=== PATIENT | male | born 1960 | race Caucasian/White ===

== ENCOUNTER → 2020-03-06 09:42 | Outpatient (CLI) | payer BC, SELFPAY ==
--- NOTE | 2020-03-06 09:45 | DI.RAD.S_ITS ---
PROCEDURE: XR HAND RT MIN 3V INDICATIONS: BILATERAL HAND JOINT PAIN TECHNIQUE: 3 views of the hand(s) acquired. COMPARISON: None. FINDINGS: Bones: No fractures or dislocations. Carpal bones are normally aligned. No suspicious bony lesions. Mild 1st CMC joint osteoarthritis. Soft tissues: No suspicious soft tissue calcifications. IMPRESSION: Osteoarthritis. Dictated by: Charlotte Daniels MD, PhD on 03/06/2020 at 16:25 Approved by: Charlotte Daniels MD, PhD on 03/06/2020 at 16:26
--- NOTE | 2020-03-06 09:45 | DI.RAD.S_ITS ---
PROCEDURE: XR HAND LT MIN 3V INDICATIONS: BILATERAL HAND JOINT PAIN TECHNIQUE: 3 views of the hand(s) acquired. COMPARISON: [facility], CR, XR HAND RT MIN 3V, 03/06/2020, 9:37. FINDINGS: Bones: No fractures or dislocations. Carpal bones are normally aligned. No suspicious bony lesions. 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 Soft tissues: No suspicious soft tissue calcifications. IMPRESSION: Osteoarthritis. Dictated by: Charlotte Daniels MD, PhD on 03/06/2020 at 16:25 Approved by: Charlotte Daniels MD, PhD on 03/06/2020 at 16:25
== END ==
PROVIDERS: PCP Internal Medicine; Referring Provider Internal Medicine; Visit Provider Internal Medicine
DX: M79.641 Pain in right hand (principal); M79.642 Pain in left hand; M19.042 Primary osteoarthritis, left hand; M19.041 Primary osteoarthritis, right hand
CPT/HCPCS: 73130

== ENCOUNTER → 2022-03-09 07:53 | Outpatient (CLI) | payer BC, SELFPAY | PROVIDERS: PCP Internal Medicine; Referring Provider Orthopaedic Surgery Orthopaedic Surgery of the Spine; Visit Provider Orthopaedic Surgery Orthopaedic Surgery of the Spine | DX: Z01.818 Encounter for other preprocedural examination (principal); Z01.812 Encounter for preprocedural laboratory examination; R73.9 Hyperglycemia, unspecified | CPT/HCPCS: 93005 ==

== ENCOUNTER → 2022-03-20 07:15 | Outpatient (CLI) | payer BC, SELFPAY ==
[2022-03-20 08:11] LABS: COVID19 -Nasal RAPID Negative (Negative)
== END ==
PROVIDERS: PCP Internal Medicine; Referring Provider Orthopaedic Surgery Orthopaedic Surgery of the Spine; Visit Provider Orthopaedic Surgery Orthopaedic Surgery of the Spine
DX: Z20.822 Contact with and (suspected) exposure to COVID-19 (principal)
CPT/HCPCS: 87635; C9803

== ENCOUNTER 2022-03-27 11:02 | Day surgery (SDC) | payer BC, SELFPAY ==
[2022-03-16 08:32] VITALS: BMI 33.9
[2022-03-27] VITALS (13 sets, daily range): BP systolic 94–144; BP diastolic 53–78; PULSE 60–92; RESP 12–18; TEMP 36–36.6; O2SAT 94–99; BMI 33.9
--- NOTE | 2022-03-27 | DI.RAD.S_ITS ---
PROCEDURE: XR LUMBAR SPINE 2-3V INDICATIONS: TLIF L5-S1 TECHNIQUE: Two views of the lumbar spine were acquired. COMPARISON: None. FINDINGS: Intraoperative spot images were obtained of the lumbosacral spine for fusion construct placement. IMPRESSION: Intraoperative spot images were obtained of the lumbosacral spine for fusion construct placement. Please see operative note for full details. Dictated by: Ray Thomas M.D. on 03/27/2022 at 15:22 Approved by: Ray Thomas M.D. on 03/27/2022 at 15:23
[2022-03-27] MEDS: GABAPENTIN 300 MG CAPSULE PO (11:39)
[2022-03-27] MEDS: ACETAMINOPHEN 325 MG TABLET 975 MG PO (11:39)
[2022-03-27] MEDS: LACTATED RINGERS 1,000 ML 42 ML IV ×2 (11:48→13:38)
[2022-03-27 12:03] LABS: COVID19 -Nasal RAPID Negative (Negative)
--- NOTE | 2022-03-27 12:06 | PM.PREOP ---
Pre-operative Note COVID-19 COVID-19 status: Negative Result date/Date tested (Pos, Neg/Pending): 03/26/22 Criteria for continued procedure: Expected advancement of disease process, Possibility delay results in more complex future surgery or treatment, Increased loss of function, Continuing or worsening of significant or severe pain, Deterioration of the patient's condition or overall health and Delay expected to result in less-positive ultimate med/surg outcome Interval Note History & Physical reviewed/Exam performed by Physician: Yes Changes to H&P: No
[2022-03-27] MEDS: CEFAZOLIN 2 GM/100 ML PREMIX 100 ML IV ×2 (13:10→20:17)
--- NOTE | 2022-03-27 13:30 | SUR.OPER ---
Prone on spine table, head in foam head support, padded chest and pelvic supports, gel pad at knees, lower legs supported by pillows; nipples, genitalia and toes free of pressure, arms secured on foam padded arm boards at <90 degrees abduction. Tape over blanket at thigh secured to table. Gel placed between heels.
[2022-03-27] MEDS: BUPIVACAINE 0.25% (PF) 30 ML, EPINEPHrine 0.3 MG INJ (15:05)
[2022-03-27] MEDS: BUPIVACAINE LIPOSOME 266 MG/20 ML VIAL INJ (15:05)
--- NOTE | 2022-03-27 15:08 | PM.OP.1 ---
Operative Date/Time/Diagnoses Date of procedure: 03/27/22 Time of procedure: 13:00 Pre-op diagnosis: 1. L5-S1 spondylolisthesis 2. L5-S1 spinal stenosis Post-op diagnosis: same Procedure & Clinicians Procedure: 1. L5-S1 Postero-lateral and posterior interbody fusion 2. L5-S1 interbody cage placement. 3. L5-S1 decompressive laminectomy with bilateral facetecomies 4. L5-S1 Posterior non-segmental instrumentation 5. [place] of bone marrow from iliac crest 6. Utilization of microsurgical technique and operating microscope Same procedure as scheduled: Yes Indications: Patient has been having chronic back pain and worsening lumbar radiculopathy. Patient failed multiple conservative management with worsening pain weakness and numbness in his lower extremity. Patient has been having difficulty performing activity of daily living. After discussing risks benefits of treatment options, patient elected proceed with surgery. Surgeon: Ameena Sadners Electric Track Switch Maintainer: Patty Calderon Click Yes if Unassisted: No Anesthesia Type: General Operative Notes Closure Type: primary Specimen(s): none sent Prosthetic devices, grafts, tissues, transplants, or devices: Globus Revolve screws, Rise cage Estimated Blood Loss (mL): 50 Blood products transfused: none Procedure in detail: Patient was seen in the preoperative area. Risks and benefits of the surgery was discussed with the patient. Informed consent was obtained from the patient and placed in the chart. Surgical site was marked. Patient was taken to the operative room. General anesthesia was administered. Prophylactic antibiotic was given to the patient less than 30 min before the incision was made. Patient was placed into a prone position on the Vernon table. Patient's back was then prepped and draped in the sterile fashion. Time-out was performed at this time. Using AP and lateral C-arm imaging the interval between L5-S1 was identified and marked on patient's back. A 2 inch incision 2 in from midline was made on the right side first. The fascia was incised in line with skin incision. Globus MARS retractors was placed inside the incision and docked onto the L5 lamina. Using microsurgical technique and operating microscope, a L5 laminectomy and L5-S1 facetectomy was performed using a Kerrison rongeur. Patient was found have severe neural foraminal stenosis and required a total facetectomy for decompression which rendered L5-S1 grossly unstable and required a fusion procedure at the same time. The disc space at L5-S1 was identified. And a total diskectomy was performed at L5-S1 level. The endplates were decorticated using a rasp and shaver. The total diskectomy and decortication was performed at L5-S1 level in order to to accomplish a L5-S1 fusion. The local bone from the laminectomy and facetectomy was saved for local bone grafting. After the total diskectomy and decortication was completed, Trifecta bone graft material was combined with local bone that was harvested earlier. At this time, a separate skin is incision was made over the iliac crest. A Jamshidi needle was inserted into the iliac crest through a separate skin incision. 5 cc of bone marrow aspiration was obtained through the separate skin incision using a Jamshidi needle from the iliac crest. The bone marrow aspiration was combined with local bone and the Trifecta bone grafting material. The bone grafting material was placed into the L5-S1 interbody space along with a expandable cage. The cage was expanded to its maximum height using the torque limiting screwdriver. At this time a mirror image incision was made on the left side. The fascia was incised in line with the skin incision. Globus MARS retractor was inserted and docked onto the L5-S1 posterolateral gutter. Using the power drill, posterior-lateral decortication was performed at L5-S1 level until bleeding cortical bone was identified. The remaining bone grafting material was placed into the L5-S1 posterior lateral gutter he order to accomplish posterolateral fusion at the L5-S1 level. Using the double C-arm technique, pedicle screws were placed into the L5-S1 pedicles bilaterally. This was done by placing the Jamshidi needle into the pedicles, then placing the guidewires over the Jamshidi needle, and finally placing the cannulated screws over the guidewires bilaterally. After the pedicle screws were placed, 2 titanium rods was locked into the heads of the pedicle screws using locking caps and torque limiting screwdriver. Spray Booth Operator users were used to reduce the patient's spondylolisthesis. Partial reduction was accomplished. All hardware placed was stable and had good purchase. After all the hardware was placed, and confirmed with AP and lateral C-arm imaging, the wound was then irrigated with sterile normal saline and packed with Ray-Traci gauze for 3 min to accomplish hemostasis. After the gauze was removed the deep fascia was closed with #1 Vicryl suture. The subcutaneous layer was closed with 2-0 Vicryl. The skin was closed with skin sruthi. Patient tolerated the procedure well. There were no complications. Complications: none Post-operative Condition: stable Disposition: PACU Plan for aftercare: Admit to inpatient hospital
--- NOTE | 2022-03-27 15:33 | PM.HP.1 ---
History of Present Illness History of Present Illness Date Patient Seen: 03/27/22 Time Patient Seen: 12:30 Date of Onset of Symptoms: 03/24/16 Chief complaint: TLIF Narrative: Mr. Peña is a 62 yo M with chronic back pain and worsening leg pain here for scheduled surgery. He has failed multiple conservative care over the last couple of years with difficulty performing activity of daily living. Patient History Medical History GERD (gastroesophageal reflux disease) Gout HLD (hyperlipidemia) HTN (hypertension) Moderate hearing loss Nerve damage Numbness and tingling STEPHANIE on CPAP Pain Sciatica Tinnitus Surgical History Hx of abdominal surgery (~2018) Hx of eye surgery Family & Social History Social History: household members spouse Prior Living Arrangements House Safety & Behavioral: Feels Safe in Current Yes Environment Been Physically Hurt or No Threatened By a Person Suicidal Ideation Description None Suicide Plan Description No Plan Tobacco & Substance use: Tobacco type cigarettes Smoking Status Former smoker alcohol intake current alcohol intake frequency a few times a week Substance Use Type does not use Meds Home Medications and Allergies Home Medications Medication Instructions Recorded Confirmed Type acyclovir 800 mg tablet 800 mg PO DAILY PRN Breakout 03/16/22 03/16/22 History allopurinol 300 mg tablet 300 mg PO DAILY 03/16/22 03/27/22 History amlodipine 5 mg tablet 5 mg PO BEDTIME 03/16/22 03/27/22 History atorvastatin 40 mg tablet 40 mg PO QPM 03/16/22 03/27/22 History colchicine 0.6 mg tablet 0.6 mg PO BID PRN Gout flare 03/16/22 03/16/22 History lisinopril 20 1 tab PO BID 03/16/22 03/27/22 History mg-hydrochlorothiazide 25 mg tablet methocarbamol 500 mg tablet 500 mg PO QID PRN Pain 03/16/22 03/27/22 History oxycodone-acetaminophen 5 mg-325 1 tab PO BID 03/16/22 03/27/22 History mg tablet pantoprazole 40 mg tablet,delayed 40 mg PO BEDTIME 03/16/22 03/16/22 History release tamsulosin 0.4 mg capsule 0.4 mg PO BEDTIME 03/16/22 03/27/22 History Allergies Allergy/AdvReac Type Severity Reaction Status Date / Time NSAIDS (Non-Steroidal AdvReac They give Verified 03/27/22 11:25 Anti-Inflamma me an ulcer Review of Systems Review of Systems ROS: Yes All systems reviewed with the patient and are negative except as otherwise documented Exam Vital Signs (past 8 hours): - 03/27/22 11:49 Temperature 96.8 F L Pulse Rate 68 Respiratory Rate 16 Blood Pressure 128/78 Pulse Oximetry 98 Oxygen Delivery Method Room Air Oxygen Delivery Method Room Air Const General: cooperative and healthy appearing Orientation: alert, awake and oriented x3 Back/Spine/Pelvis Other: Pain located at lumbosacral junction. Increased pain with extension and twisting. Neuro Other: + straight leg raise to RLE, sensibility decreased to bilateral L5 dermatome, motor strength 4/5 in bilateral EHL. Objective Labs Labs: Laboratory Results - last 24 hr 03/27/22 11:43 SARS-CoV-2 (PCR) Negative Assessment & Plan Assessment & Plan narrative: 62 yo M with chronic back pain due to grade III spondylolisthesis at L5-S1 level. He has severe back pain and leg pain correlating with his MRI finding of spondylolisthesis and foramen stenosis/central stenosis. He may benefit from decompression and fusion at L5-S1 level to address his spinal stenosis and spondylolisthesis. Risks for surgery include but not limited to bleeding, infection, persisting pain, nerve/dura/bladder/bowel/blood vessel injury, need for additional procedure, even . Patient understands and would like to proceed with surgery. I scheduled him for L5-S1 TLIF. Time Spent With Patient Critical Care time: I spent a total of [] minutes of critical care time on this patient's care today; this time is exclusive of procedural time. Quality VTE Deep Vein Thrombosis/Pulmonary Embolism Present on Admission: No
[2022-03-27] MEDS: hydrOXYzine 50 MG/ML INJ 25 MG IM (15:39)
[2022-03-27] MEDS: SODIUM CHLORIDE 0.9% 1,000 ML 100 ML IV (17:00)
[2022-03-27] MEDS: HYDROMORPHONE 0.5 MG INJ IV (17:17)
[2022-03-27] MEDS: hydrOXYzine pamoate 25 MG CAPSULE PO (17:18)
[2022-03-27] MEDS: ATORVASTATIN 20 MG TABLET 40 MG PO (17:18)
[2022-03-27] MEDS: OXYCODONE IR 5 MG TABLET 10 MG PO ×2 (18:32→21:51)
[2022-03-27] MEDS: ACETAMINOPHEN 325 MG TABLET 650 MG PO (19:23)
[2022-03-27] MEDS: TAMSULOSIN 0.4 MG CAPSULE PO (20:17)
[2022-03-27] MEDS: OXYCODONE/ACETAMINOPHEN 5/325 TABLET 1 TAB PO (20:17)
[2022-03-27] MEDS: DOCUSATE 100 MG CAPSULE PO (20:17)
[2022-03-27] MEDS: AMLODIPINE 5 MG TABLET PO (20:18)
[2022-03-27] MEDS: hydroCHLOROthiazide 25 MG TABLET PO (20:18)
[2022-03-27] MEDS: lisinopriL 20 MG TABLET PO (20:18)
[2022-03-27] MEDS: PANTOPRAZOLE DR 40 MG TABLET PO (20:18)
[2022-03-27] MEDS: SENNOSIDES 8.6 MG TABLET 17.2 MG PO (20:18)
[2022-03-28 00:07] VITALS: BP 124/70; PULSE 70; RESP 18; TEMP 36.7; O2SAT 99
[2022-03-28] MEDS: OXYCODONE IR 5 MG TABLET 10 MG PO ×2 (01:24→09:55)
--- NOTE | 2022-03-28 03:31 | PC.NURSE ---
Pt is AxOx4, needs 1 person assistance and cooperative. VSS except pain on his back. Pt request PRN Oxy around the clock. Pt goes to the bathroom and urinating well. pt uses his cpap machine at night. Dressing on his back has very light drainage. No other changes. Continue monitor.
[2022-03-28 03:50] VITALS: BP 142/63; PULSE 67; RESP 18; TEMP 36.6; O2SAT 95
[2022-03-28] MEDS: CEFAZOLIN 2 GM/100 ML PREMIX 100 ML IV (05:28)
[2022-03-28 07:32] VITALS: BP 135/71; PULSE 80; RESP 16; TEMP 37.4; O2SAT 93
[2022-03-28] MEDS: OXYCODONE/ACETAMINOPHEN 5/325 TABLET 1 TAB PO (07:32)
[2022-03-28] MEDS: hydroCHLOROthiazide 25 MG TABLET PO (07:32)
[2022-03-28 07:33] VITALS: BP 142/63; PULSE 67
[2022-03-28] MEDS: DOCUSATE 100 MG CAPSULE PO (07:33)
[2022-03-28] MEDS: hydrOXYzine pamoate 25 MG CAPSULE PO (07:33)
[2022-03-28] MEDS: lisinopriL 20 MG TABLET PO (07:33)
[2022-03-28] MEDS: COLCHICINE 0.6 MG TABLET PO (07:38)
--- NOTE | 2022-03-28 08:02 | PM.DS.1 ---
History of Present Illness History of Present Illness Date Patient Seen: 03/28/22 Time Patient Seen: 08:02 Chief complaint: TLIF Narrative: Patient is complaining of moderate low back pain this morning. He also notes he has slightly decreased sensation in the left as compared to the right lower extremity. He is not worked with physical therapy or occupational therapy yet. Overall he is feeling well and will hopefully be discharged home today. Discharge Providers Provider Discharge Date: 03/28/22 Primary care physician: David Morales MD Consults: 03/27/22 12:07 Consult to Respiratory Therapy Evaluate & Treat Comment: Physician Instructions: Evaluate and treat 03/27/22 16:41 Consult to Occupational Therapy Evaluate & Treat Comment: Physician Instructions: Evaluate and treat Consult to Physical Therapy Evaluate & Treat Comment: Physician Instructions: Evaluate and Treat Discharge provider: Patty Calderon PA-C Summary Hospital Course Discharge Diagnosis: 1. L5-S1 spondylolisthesis 2. L5-S1 spinal stenosis Hospital Course: Operative Date/Time/Diagnoses Date of procedure: 03/27/22 Time of procedure: 13:00 Procedure & Clinicians Procedure: 1. L5-S1 Postero-lateral and posterior interbody fusion 2. L5-S1 interbody cage placement. 3. L5-S1 decompressive laminectomy with bilateral facetecomies 4. L5-S1 Posterior non-segmental instrumentation 5. [place] of bone marrow from iliac crest 6. Utilization of microsurgical technique and operating microscope Same procedure as scheduled: Yes Indications: Patient has been having chronic back pain and worsening lumbar radiculopathy. Patient failed multiple conservative management with worsening pain weakness and numbness in his lower extremity.? Patient has been having difficulty performing activity of daily living.? After discussing risks benefits of treatment options, patient elected proceed with surgery. Surgeon: Ameena Sanders [facility] Director: Patty Calderon Click Yes if Unassisted: No Anesthesia Type: General Operative Notes Closure Type: primary Specimen(s): none sent Prosthetic devices, grafts, tissues, transplants, or devices: Globus Revolve screws, Rise cage Estimated Blood Loss (mL): 50 Blood products transfused: none Status at Discharge Cognitive/behavioral status at discharge: at baseline, oriented Functional status at discharge: uses cane/walker Overall status at discharge: patient is progressing back to baseline Exam Vital Signs (past 8 hours): - 03/28/22 00:07 03/28/22 03:50 03/28/22 07:33 Temperature 98.0 F 97.8 F Pulse Rate 70 67 67 Respiratory Rate 18 18 Blood Pressure 124/70 142/63 H 142/63 H Pulse Oximetry 99 95 Oxygen Flow Rate 0 0 03/28/22 07:32 Temperature 99.3 F Pulse Rate 80 Respiratory Rate 16 Blood Pressure 135/71 Pulse Oximetry 93 Oxygen Flow Rate Oxygen Delivery Method CPAP Oxygen Flow Rate 0 Narrative Exam Narrative: Pleasant 62-year-old male, resting comfortably in bed, no acute distress. Dressing demonstrates some scant bloody discharge on the left lateral incision. There is no surrounding erythema or induration. Bilateral lower extremity: Motor functions are grossly intact, sensation is slightly decreased left as compared to right on the lateral malleolus, calves are soft and nontender to palpation. Objective Labs Labs: Laboratory Results - last 24 hr 03/27/22 11:43 SARS-CoV-2 (PCR) Negative [facility] Medical History GERD (gastroesophageal reflux disease) Gout HLD (hyperlipidemia) HTN (hypertension) Moderate hearing loss Nerve damage Numbness and tingling STEPHANIE on CPAP Pain Sciatica Tinnitus Surgical History Hx of abdominal surgery (~2018) Hx of eye surgery Social History household members: spouse Smoking Status: Never smoker alcohol intake: current Discharge Assessment & Plan Assessment and Plan Assessment: -stable status post L5-S1 TLIF Plan of Treatment: -mobilize with PT/OT. No bending, lifting, twisting x6 weeks. Weightbearing as tolerated with front wheel walker or cane -continue with multimodal pain management -continue to monitor for lower extremity sensation -DC home today once cleared by PT Discharge Plan Discharge Plan Patient Disposition: Home Discharge orders & Medications Discharge Orders: Discharge (Order); Ordered 03/28/22 Ordered By: Patty Calderon Prescriptions: New docusate sodium 100 mg Capsule 100 mg PO BID PRN (Reason: constipation) Qty: 30 0RF acetaminophen 500 mg capsule 500 mg PO Q4H PRN (Reason: Pain, Mild (1-3)) Qty: 90 0RF oxycodone 5 mg Tablet See Rx Instructions .ROUTE .COMPLEX PRN (Reason: Pain, Severe (7-10)) Qty: 42 0RF Rx Instructions: Take 1-2 tablets by mouth every 4 hours as needed for moderate to severe postoperative pain hydroxyzine pamoate 25 mg Capsule 25 mg PO Q4HR PRN (Reason: Muscle spasm/pain/nausea) Qty: 30 0RF Continued atorvastatin 40 mg Tablet 40 mg PO QPM methocarbamol 500 mg Tablet 500 mg PO QID PRN (Reason: Pain) amlodipine 5 mg Tablet 5 mg PO BEDTIME acyclovir 800 mg Tablet 800 mg PO DAILY PRN (Reason: Breakout) Rx Instructions: space evenly during waking hours tamsulosin 0.4 mg Capsule 0.4 mg PO BEDTIME pantoprazole 40 mg Tablet,Delayed Release (Dr/Ec) 40 mg PO BEDTIME lisinopril-hydrochlorothiazide 20-25 mg Tablet 1 tab PO BID allopurinol 300 mg Tablet 300 mg PO DAILY colchicine 0.6 mg Tablet 0.6 mg PO BID PRN (Reason: Gout flare) Discontinued oxycodone-acetaminophen 5-325 mg Tablet 1 tab PO BID Follow up/Referrals: David Morales MD [Primary Care Provider] - Ameena Sanders MD [Physician] - (10-14 days for postoperative visit) Diet/Activity/Treatments Diet: Diet as Tolerated Other treatments: Medications: -OTC Tylenol 500 mg 1 tablet every 4 hours as needed for pain/fever. Max 6 tablets per day. -Oxycodone 5 mg take 1-2 tablets every 4 hours as needed for moderate-severe pain (narcotic pain medication). -As needed medications: -Ducolax and /or MiraLax as needed for constipation from narcotic pain medications. -Pepcid AC as needed for stomach upset. -Vistaril (hydroxyine) 25mg 1 tab every 4 hours as needed for spasms/pain/nausea. Dressing/Wound care: -Keep dressing in place until postoperative follow-up office visit. -Okay to shower. Keep wound out of direct water stream. Can use PressNSeal plastic wrap to protect from shower stream. No soaking or submerging until all the scabs fall off (approximately 6 weeks). -Please call the office if dressing becomes wet, soiled, or saturated. Activities: -Limit bending, lifting, twisting x6 weeks. No deep bending (more than 90 degrees) or twisting at the waist. No lifting > 20 pounds. -Walk frequently. -Weight-bearing as tolerated. Use front wheeled walker, and progress to cane when safe. -Continue with home exercises as directed by your physical therapist. -Ice your incision as needed for pain/inflammation/swelling. Protect your skin with a folded pillowcase. -Incentive Spirometer (breathing device from hospital): 5-10xs every hour while awake for the first 1-2 weeks. Follow-up: -Follow-up with your surgeon or PA in the office in 10-14 days after surgery. -Follow-up with your surgeon 6 weeks postoperatively. Call the office if you have chest pain, shortness of breath, significant swelling that will not resolve with elevating, fever over 101?, significantly worsening pain, or are concerned you might need to go to the Emergency Room. [facility]: [phone] Skin/Wound/Dressing Care Report to your healthcare provider any signs of infection, such as:: chills, fever, night sweats, unusual drainage and unusual redness Visit Report/Discharge Packet Instructions: DI for Transforaminal Lumbar Interbody Fusion Stand Alone Forms: Surgery Discharge Discharge Data Primary Care Provider: David Morales Attending Provider: Ameena Sanders VTE Deep Vein Thrombosis/Pulmonary Embolism Present on Admission: No
[2022-03-28] MEDS: allopurinoL 300 MG TABLET PO (09:00)
--- NOTE | 2022-03-28 09:35 | PT.IIE ---
Current Diagnoses Spondylolisthesis, lumbosacral region (03/27/22) Spinal stenosis, lumbar region without neurogenic claudication (03/27/22) Surgery Performed Operation Date: 03/27/22 12:45 Actual Procedures p L5-S1 TLIF - Ameena Sanders MD Surgical History (Last Reviewed 03/28/22 @ 08:04 by Patty Calderon PA-C) Hx of abdominal surgery (~2018) Hx of eye surgery Medical History (Last Reviewed 03/28/22 @ 08:04 by Patty Calderon PA-C) GERD (gastroesophageal reflux disease) Gout HLD (hyperlipidemia) HTN (hypertension) Moderate hearing loss Nerve damage Numbness and tingling STEPHANIE on CPAP Pain Sciatica Tinnitus Physical Therapy Inpatient Evaluation/Re-Eval M1 PT/OT-IP Prior Functional Status Start: 03/28/22 11:33 Freq: NEEDED Status: Discharge Protocol: Document 03/28/22 09:35 AB (Rec: 03/28/22 11:43 AB [id number]) Medical Review Prior Functional Status Medical History Reviewed Yes Communication able to make needs known Mobility and Gait pt stated that he is independent with all mobilities and ambulation without AD but occasionally uses a SPC due to L knee giving out on him Social History Household Members spouse Living Arrangements House Number of Floors (Floors) Two Floors Number of Stairs To Enter/Railing? 4 steps with wide rails to enter 7 steps with B rails to bedroom level Home Environment Standard Height Toilet,Walk in Shower,Built-In Shower Seat Home Equipment Straight Cane,Hand Held Shower M2 PT-IP Current Condition Start: 03/28/22 11:33 Freq: NEEDED Status: Discharge Protocol: Document 03/28/22 09:35 AB (Rec: 03/28/22 11:43 AB [id number]) Physical Therapy Current Condition Current Condition Evaluation Date 03/28/22 Treatment Diagnosis s/p L5S1 fusion; difficulty in walking Onset Date 03/27/22 M3 PT-IP Subjective Start: 03/28/22 11:33 Freq: NEEDED Status: Discharge Protocol: Document 03/28/22 09:35 AB (Rec: 03/28/22 11:43 AB [id number]) Subjective Physical Therapy Visit Type Type Initial Evaluation Visit Start Time 09:35 Visit Stop Time 10:00 Total Visit Minutes 25 Number of SURVEY TECHNICIAN Visits 0 Physical Therapy Visit Comments Patient Comments agreeable to do PT Therapy Pain Assessment Pain When Pain Assessed At Rest Pain Present Pain Present Pain Reported Location Bilateral Back Intensity 5 Scale Used Numeric (0 - 10) Pain Management Techniques Distraction,Modification of Treatment,Re-positioning, Timing of Activity with Medications M4 PT-IP Mobility and Gait Start: 03/28/22 11:33 Freq: NEEDED Status: Discharge Protocol: Document 03/28/22 09:35 AB (Rec: 03/28/22 11:43 AB [id number]) PT-Bed Mobility Assessment Rolling Type of Rolling Log Rolling Level of Assist Standby Assistance Supine to Sit Supine to Sit Standby Assistance Sit to Supine Sit to Supine Standby Assistance PT-Transfer Assessment Sit to and From Stand Sit to and from Stand Standby Assistance,1 Person Assistance,Use of Upper Extremities Equipment Transfer Assistive Device None,Gait Belt Orthotic/Prosthetic Devices or Brace: No Transfers Transfer Destination Toilet Transfer Technique ambulated Transfer Ability Level of Assist Standby Assistance,Use of Upper Extremities Comments Mobility Comments educated pt on back precautions and log roll bed mobility. pt completed log roll supine to sit SBA. requested to use the toilet. stated that he has been getting up and does not need a FWW. pt ambulated to the toilet without AD SBA. completed toileting without assistance. pt agreed to do stairs. ambulated in the hallway using SPC SBA ~ 150 ft . completed up/down steps using 1 rail and SPC SBA and completed again with B rails SBA. pt ambulated back to his room SBA using SPC. sat on chair and positioned. call light and table placed within reach. pt without further concerns. Gait Assessment Gait Gait Assistance Required: Standby Assistance Distance (Feet) 150 Able to Maintain Weight Bearing Status Yes During Gait Assistive Devices Assistive Device Gait Belt,Straight Cane Orthotic/Prosthetic Devices or Brace: No Gait Deviations General Gait Pattern Antalgic Factors Limiting Gait Function Factors Limiting Gait Function Decreased Activity Tolerance, Decreased Strength,Limited Range of Motion,Pain,Poor Balance,Poor Safety Awareness Stair Climbing Assessment Evaluation Level of Assist On Stairs Standby Assistance Devices Stair Climbing Assistive Devices Left Railing,Right Railing Technique/Endurance Stair Climbing Direction Ascend and Descend Stair Climbing Technique Step Over Step Number of Steps Climbed 3 Query Text: Stair Climbing Set # Repetitions (reps) 2 PT-Balance Assessment Sitting Balance and Reactions Static Sitting Balance Ability Normal Dynamic Sitting Balance Ability Normal Standing Balance and Reactions Static Standing Balance Ability Good Dynamic Standing Balance Ability Fair Device Used without AD M5 PT-IP Objective Assessments Start: 03/28/22 11:33 Freq: NEEDED Status: Discharge Protocol: Document 03/28/22 09:35 AB (Rec: 03/28/22 11:43 AB [email or web address]) Orientation Orientation/Cognition Level of Alertness Alert Orientation Name,Age,Birthday,Month,Date, Year,Day of Week,Place, Situation Language Function Ability No Deficits Noted Safety Awareness Decreased Safety Awareness Memory Description No Deficits Noted Gross Range of Motion Lower Extremity ROM Assessment Within Functional Limits Strength Lower Extremity Strength Assessment Within Functional Limits Coordination Assessment Gross Coordination Gross Coordination WNL Sensation Assessment Sensation Gross Sensation WNL Muscle Tone Muscle Tone WNL Yes M6 PT-IP Treatment Start: 03/28/22 11:33 Freq: NEEDED Status: Discharge Protocol: Document 03/28/22 09:35 AB ([facility] Treatment Education Education Provided Precautions,Weight Bearing Status,Post-Op Packet,Safety M7 PT-IP Assessment and Plan Start: 03/28/22 11:33 Freq: NEEDED Status: Discharge Protocol: Document 03/28/22 09:35 AB (Rec: 03/28/22 11:[facility] PT Summary Assessment and Plan Potential Rehabilitation Potential Good Status of Condition at Evaluation Stable Summary Impairments Pain,ROM,Strength,Balance, Coordination,Sensation,Tone, Cognition,Bed Mobility, Transfers,Gait,Activity Tolerance Assessment Summary pt requiring SBA with mobility and plans to go home with spouse to assist him. pt may go home when medically stable. Goals Bed Mobility Goal Independent Transfer Goal Independent Gait Goal Independent Gait Distance 250 Other Goals up/dpwn 7 steps B rail mod I up/down 4 steps 1 rail mod I Days to Meet Goals 3 Frequency of Treatment Frequency Of Treatment Twice a Day Treatment Plan Physical Therapy Treatment Plan Bed Mobility Training,Transfer Training,Gait Training, Therapeutic Exercise,Balance Retraining,Post Op Education, Discharge Planning,Hot or Cold Pack,Neuromuscular Re-ed, Coordination Retraining,Manual Therapy Precautions Lumbar Precautions Log Roll,No Twisting,Limit Bending,Lifting Restriction of 10 lbs,Gait Belt above Incisional Area Recommendations To Nursing Amount of Assist Needed Standby Assistance Discharge Recommendations PT Discharge Recommendations Home with Assistance Transportation Needs at Discharge Private Vehicle
--- NOTE | 2022-03-28 10:35 | CM.DANOTE ---
DCP: Case received, EMR reviewed and met with patient. Introduced self and role. Was able to obtain information regarding patient's baseline activity status prior to his surgery. DCP assessment completed with information currently available. Patient is a 62 year old male who admitted yesterday morning to the care of the orthopedic team. PCP: Dr. Morales. Payer: confirmed: [facility]. Patient came in for a surgical procedure. Patient had TLIF. He has history of chronic back pain. Met with patient in his room. He was laying in bed, alert and oriented. He resides in [place] with his spouse, April. At his baseline, he is independent, but has a cane for use if needed. He confirmed that his will be able to assist him when he goes home. He did indicate that he does have 13 stairs in the home. P: Patient has DC orders, pending working with P.T. today. Paula Bauer RN/Electro Mechanical Assembler Discharge Planning/Care Management Advanced directive, confirm from FAMILY Start: 03/27/22 18:04 Freq: Q24H Status: Active Protocol: Document 03/27/22 18:04 MS (Rec: 03/27/22 18:04 MS [id number]) Advance Directive, confirm on record Time 18:04 Person contacted Pt Copy received No CM Discharge Assessment Start: 03/28/22 10:34 Freq: Status: Active Protocol: Document 03/28/22 10:34 (Rec: 03/28/22 10:35 [id number]) Discharge Planning Assessment Assigned Ent Surgeon Paula Bauer RN/Electro Mechanical Assembler Advance Directives? No Advance Directives on File No History Provided By Patient,Medical Record Prior Living Arrangements House Household Members spouse Type of transporation used prior to Drives own vehicle admit Independent with ADL's Yes Is patient alert and oriented? Yes Caregiver for Another No Barriers to Discharge No Discharge Plan Home Transportation Arrangement Spouse Referrals Initiated None needed Whiteboard Updated in Patient Room with Yes name and ext. # of Ent Surgeon Review Status In Process Next Review Type Continued Stay Review Pre-Anesthesia Assessment Start: 03/16/22 08:32 Freq: Status: Active Protocol: Document 03/16/22 08:32 CAB (Rec: 03/16/22 09:42 CAB [id number]) Pre-Anesthesia Assessment Patient Information Reviewed Via Phone Assessment Assessment Completed With Patient Diagnostic Results EKG Comment Labs done, not here, ECG @ [facility] 02/26/22, COVID screen-need to schedule Primary Care Provider David Morales Seen Specialist in Last 12 Months Yes Specialist Seen Opthamologist/Ceo & Founder, Orthopedist Primary Language Cameroonian Media Assistant Required No Height 5 ft 8 in Weight 223 lb Body Mass Index (BMI) 33.9 Hearing Ability Hard of Hearing Visual Assist Glasses Dentition Type Teeth, Natural Present,Teeth, Missing Barriers to Learning None Hx Anesthesia Reactions No Hx Family Anesthesia Reaction No Hx Malignant Hyperthermia No Hx Blood Transfusions No Anesthesia Review Requested No alcohol intake current alcohol intake frequency a few times a week Smoking Status Never smoker Substance Use Type does not use Pain Present Pain Reported Musculoskeletal Symptoms Abnormal Gait,Back Pain,Joint Pain,Muscle Weakness,Neck Pain ,Numbness,Radiating Pain into Limb,Tingling History of Falling (Recent or History of No ) Patient is completely paralyzed or No completely immobile Prosthesis or Orthotic Device Cane Mental Status Oriented to own ability Is patient on oxygen? No Does patient have XAVIER/SOB No Hx Sleep Apnea Yes CPAP/BIPAP use prescribed and used routinely Will Bring CPAP/BIPAP DOS Yes Currently Taking a Beta Mason No Can You Climb a Flight of Stairs Without Yes SOB Hx Chest Pain No Hx SOB No Hx Syncope or Dizziness No Anti-Coagulant Therapy No Has a Business Development No Cardiac Testing No Hx Pacemaker/ICD No Pacemaker Rep Required? No Diet Type At Home Regular dysphagia No Gastrointestinal Symptoms Constipation,Reflux Genitourinary Symptoms Change in Urinary Stream, Difficulty Urinating Urinary Catheter Present No Hx Urinary Self Catheterization No Diabetes No Hx Drug Resistant Organism No Presence of External or Internal Medical Yes: CPAP, braces for knees/ Devices hands Have you had any close contact with No someone diagnosed with COVID-19? Received a COVID vaccine? Yes Received all doses? No Marital Status Lives With spouse Prior Living Arrangements House Number of Floors (Floors) Two Floors Support System Spouse Does the Patient Have Assistance After Yes Surgery Patient Discharge Plan Description Return Home Comment Pt advised overnight length of stay per surgeon Feels Safe in Current Environment Yes Been Physically Hurt or Threatened By a No Person in Current Environment Do you have thoughts of harming yourself None or others? Are you currently considering suicide? No Do you have a plan to hurt yourself or No Plan others? Do You Have Any Spiritual Beliefs That No May Affect Your HC Choices? Do You Have Any Cultural Practices That No May Affect Your HC Choices? Comment Yazidi Who Can We Speak to About Patient's Care only Identifying Code for Release of Patient Declines to issue Information Health Care Proxy/Next of Kin April () Health Care Proxy Emergency Contact Name April () Emergency Contact Advance Directives? No Power of Inside Barrel Lathe Operator No PAC Instructions Bring CPAP/BIPAP,Durable medical equipment,Medications to take/avoid,Nasal antibiotic ,No ETOH/petroleum product on skin DOS,NPO,Post-op transportation,Sensory aids, Sturdy shoes/comfortable clothes,Do not bring valuables and remove jewelry
--- NOTE | 2022-03-28 11:31 | PC.NURSE ---
day shift Pt left via wheelchair, accompained by , Pt received all paperwork and answered all questions, Pt had all belongings. Pt denied any pain or nausea. Pt left the floor at 1130 to his private vehicle.
== END 2022-03-28 11:33 | disposition home or self-care (01) ==
LOC: OR 11:02 → AC 11:03
PROVIDERS: PCP Internal Medicine; Referring Provider Orthopaedic Surgery Orthopaedic Surgery of the Spine; Visit Provider Orthopaedic Surgery Orthopaedic Surgery of the Spine
PROC: (CPT 22633; principal; 2022-03-27 12:45)
DX: M48.061 Spinal stenosis, lumbar region without neurogenic claudication (principal); M43.17 Spondylolisthesis, lumbosacral region; M54.16 Radiculopathy, lumbar region; G47.33 Obstructive sleep apnea (adult) (pediatric); I10 Essential (primary) hypertension; K21.9 Gastro-esophageal reflux disease without esophagitis; Z20.822 Contact with and (suspected) exposure to COVID-19
CPT/HCPCS: 22633; 20939; 63052; 22853; 22840; 72100; 76000; 87635; 97161; C9803; C1713; C9290; J0171; J0690; J1170; J3010; J3410

== ENCOUNTER → 2022-12-02 07:52 | Outpatient (CLI) | payer BC, SELFPAY ==
[2022-03-27 17:46] VITALS: BMI 33.9
--- NOTE | 2022-12-02 | DI.MRI.S_ITS ---
PROCEDURE: MR KNEE LT WO CON INDICATIONS: Unspecified internal derangement of left knee TECHNIQUE: Noncontrast sagittal PD fast spin echo and T2 fast spin echo with fat saturation, sagittal 3-D FLASH with fat saturation; coronal T1 spin echo and PD fast spin echo with fat saturation, and axial PD fast spin echo with fat saturation through the knee. COMPARISON: [facility] [place], CR, XR KNEE 4+ VIEWS BILATERAL, 09/29/2022, 10:49. FINDINGS: Image quality: degraded by motion artifact. Menisci: There is linear horizontal high T2 signal intensity within the inner, middle, and peripheral thirds of the posterior horn medial meniscus, demonstrating inferior articular surface extension, indicating horizontal tearing. Truncation of the free edge of the medial meniscal body is present indicating radial tearing. Truncation of the free edge of the lateral meniscal body is present, indicating radial tearing. Cruciate ligaments: The anterior and posterior cruciate ligaments appear intact. Medial structures: The medial collateral ligament appears intact. Visualized portions of the pes anserinus tendons appear normal. No abnormal bursal fluid. Lateral structures: The lateral collateral ligament demonstrates mild T2 signal elevation proximally at the femoral origin. The long and short heads of the biceps femoris tendon appear intact. The popliteus tendon appears normal. Iliotibial band appears normal. Anterior structures: The quadriceps and patellar tendons appear intact. Patellar alignment is normal. No femoral trochlear dysplasia or ventral trochlear prominence. No edema in the infrapatellar fat pad. Moderate ill-defined T2 signal elevation surrounding the healed fracture deformity of the medial patella, consistent with adjacent inflammation. Bones and cartilage: No bone marrow contusions nor acute fractures. A healed fracture deformity of the medial patellar facet with high-grade overlying articular cartilage loss. There is mild indentation of the mid weight-bearing aspect of the medial femoral condyle with full-thickness overlying cartilaginous loss. There is mild, presumably degenerative marrow edema within the anterior weight-bearing aspect of the medial tibial plateau. Severe articular cartilage loss overlies the weight-bearing aspect of the lateral tibial plateau. Articular cartilage fibrillation overlies the lateral patellar facet. The cartilage of the medial and lateral femorotibial compartments, as well as the patellofemoral compartment, appears normal in thickness. Joint space: There is physiologic knee joint fluid. No Eckert's cyst. Normal appearing synovial plicae are incidentally noted. IMPRESSION: 1. Medial and lateral meniscal tearing. 2. Low-grade lateral collateral ligament tear. 3. Healed fracture deformities of the medial femoral condyle and medial patellar facet. There is evidence of surrounding soft tissue inflammation surrounding the healed medial patellar fracture. 4. Tricompartmental osteoarthritis with associated articular cartilage loss. Dictated by: Mukund Marinelli M.D. on 12/02/2022 at 9:51 Approved by: Mukund Marinelli M.D. on 12/02/2022 at 9:57
== END ==
PROVIDERS: PCP Internal Medicine; Referring Provider Orthopaedic Surgery Foot and Ankle Surgery; Visit Provider Orthopaedic Surgery Foot and Ankle Surgery
DX: S83.242A Other tear of medial meniscus, current injury, left knee, initial encounter (principal); S83.282A Other tear of lateral meniscus, current injury, left knee, initial encounter; S83.422A Sprain of lateral collateral ligament of left knee, initial encounter; M17.12 Unilateral primary osteoarthritis, left knee; M23.92 Unspecified internal derangement of left knee; S82.092S Other fracture of left patella, sequela
CPT/HCPCS: 73721